=== PATIENT | male | born 1975 | race Caucasian/White ===

== ENCOUNTER 2018-01-03 13:25 | Emergency (ER) | payer BC ==
[2018-01-03] MEDS ORDERED: Sodium Chloride 0.9% 1,000 ML IV ONE (13:47)
[2018-01-03] MEDS ORDERED: Ondansetron 4 MG/2 ML SDV IVPUSH ONE (13:47)
[2018-01-03] MEDS ORDERED: Ketorolac 30 MG/ML SDV IVPUSH ONE (13:47)
--- NOTE | 2018-01-03 13:47 | EDM.PDOC ---
ED HPI GENERAL MEDICAL PROBLEM - General Chief Complaint: Abdominal Pain Stated Complaint: ABDOMINAL PAIN Time Seen by Provider: 01/03/18 13:46 Source of Information: Reports: Patient - History of Present Illness INITIAL COMMENTS - FREE TEXT/NARRATIVE: HISTORY AND PHYSICAL: History of present illness: [Patient presents with left lower quadrant pain nonradiating worsened by movement or walking better at rest here currently rates 5 out of 10, and states it is tolerable. Patient has had colonoscopy in the last 2 years and was found to have diverticulosis at that time no fever nausea vomiting chills sweats no chest pain shortness of breath headache dizziness or palpitation no bowel or urine symptoms ] Review of systems: As per history of present illness and below otherwise all systems reviewed and negative. Past medical history: As per history of present illness and as reviewed below otherwise noncontributory. Surgical history: As per history of present illness and as reviewed below otherwise noncontributory. Social history: No reported history of drug or alcohol abuse. Family history: As per history of present illness and as reviewed below otherwise noncontributory. Physical exam: HEENT: Atraumatic, normocephalic, pupils reactive, negative for conjunctival pallor or scleral icterus, mucous membranes moist, throat clear, neck supple, nontender, trachea midline. Lungs: Clear to auscultation, breath sounds equal bilaterally, chest nontender. Heart: S1S2, regular, negative for clicks, rubs, or JVD. Abdomen: Soft, nondistended, tender in the left lower quadrant on deep palpation some guarding no rebound, no right-sided tenderness. Negative for masses or hepatosplenomegaly. Negative for costovertebral tenderness. Pelvis: Stable nontender. Genitourinary: Deferred. Rectal: Deferred. Extremities: Atraumatic, negative for cords or calf pain. Neurovascular unremarkable. Neuro: Awake, alert, oriented. Cranial nerves II through XII unremarkable. Cerebellum unremarkable. Motor and sensory unremarkable throughout. Exam nonfocal. Diagnostics: [CBC CMP UA lipase troponin EKG ]CT abdomen pelvis with contrast and without Therapeutics: [Normal saline 1 L bolus Zofran 8 mg IV Toradol 30 mg IV ] Cipro 500 by mouth now Patient refused the Zofran and Toradol Patient is offered admission and he refused at this time stating he would rather be treated at home Cipro 500 by mouth twice a day #20 no refill Flagyl 500 by mouth 3 times a day #30 no refill Zofran Moriah Return if symptoms persist or worsen Impression: Diverticulitis [ abdominal pain ] Definitive disposition and diagnosis as appropriate pending reevaluation and review of above. Left Lower Abdomen Pain Score (Numeric/FACES): 10 - Related Data Allergies Allergy/AdvReac Type Severity Reaction Status Date / Time No Known Allergies Allergy Verified 01/03/18 13:51 Home Meds: Home Meds Aspirin [Ecotrin] 81 mg PO DAILY 01/03/18 [History] Desvenlafaxine Succinate [Pristiq ER] 50 mg PO DAILY 01/03/18 [History] Docusate Sodium/Sennosides [Senokot-S] 2 tab PO ASDIRECTED 01/03/18 [History] Insulin Detemir [Levemir Flextouch] 30 unit SQ BEDTIME 01/03/18 [History] Ozempic 0.25 mg SUBCUT WEEKLY 01/03/18 [History] Psyllium Husk [Daily Fiber] 2 tab PO BID 01/03/18 [History] Ramipril [Altace] 2 tab PO BID 01/03/18 [History] metFORMIN HCl [Metformin HCl] 500 mg PO BID 01/03/18 [History] Past Medical History Other HEENT History: wears glasses Cardiovascular History: Reports: High Cholesterol, Other (See Below) Respiratory History: Reports: None Gastrointestinal History: Reports: Chronic Constipation, Hemorrhoids Genitourinary History: Reports: None Musculoskeletal History: Reports: Other (See Below) Other Musculoskeletal History: ankles Neurological History: Reports: None Psychiatric History: Reports: Anxiety, Depression Other Psychiatric History: takes a "mood stabilizer" Endocrine/Metabolic History: Reports: Diabetes, Type II, Obesity/BMI 30+ Hematologic History: Reports: None Immunologic History: Reports: None Oncologic (Cancer) History: Reports: Other (See Below) Other Oncologic History: 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), 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 ED EXAM, GENERAL - Physical Exam Exam: See Below Course - Vital Signs Last Recorded V/S: Last Vital Signs Temp 97.7 F 01/03/18 15:46 Pulse 89 01/03/18 15:46 Resp 18 01/03/18 15:46 BP 142/76 H 01/03/18 15:46 Pulse Ox 97 01/03/18 15:46 - Orders/Labs/Meds Orders: Active Orders 24 hr Category Date Time Status EKG 12 Lead [EKG Documentation Completion] [RC] STAT Care 01/03/18 13:46 Active Abdomen Pelvis w wo Cont [CT] Stat Exams 01/03/18 14:24 Taken UA W/MICROSCOPIC [URIN] Stat Lab 01/03/18 13:46 Ordered Labs: Laboratory Tests 01/03/18 01/03/18 Range/Units 14:00 14:00 WBC 14.98 H (4.0-11.0) K/uL RBC 5.21 (4.50-5.90) M/uL Hgb 14.4 (13.0-17.0) g/dL Hct 42.9 (38.0-50.0) % MCV 82.3 (80.0-98.0) fL MCH 27.6 (27.0-32.0) pg MCHC 33.6 (31.0-37.0) g/dL RDW Std Deviation 41.9 (28.0-62.0) fl RDW Coeff of Linda 14 (11.0-15.0) % Plt Count 216 (150-400) K/uL MPV 9.10 (7.40-12.00) fL Neut % (Auto) 77.4 (48.0-80.0) % Lymph % (Auto) 12.0 L (16.0-40.0) % Finney % (Auto) 9.4 (0.0-15.0) % Eos % (Auto) 0.9 (0.0-7.0) % Baso % (Auto) 0.3 (0.0-1.5) % Neut # (Auto) 11.6 H (1.4-5.7) K/uL Lymph # (Auto) 1.8 (0.6-2.4) K/uL Finney # (Auto) 1.4 H (0.0-0.8) K/uL Eos # (Auto) 0.1 (0.0-0.7) K/uL Baso # (Auto) 0.1 (0.0-0.1) K/uL Nucleated RBC % 0.0 /100WBC Nucleated RBCs # 0 K/uL Sodium 136 (136-148) mmol/L Potassium 3.8 (3.5-5.1) mmol/L Chloride 102 (98-107) mmol/L Carbon Dioxide 24.3 (21.0-32.0) mmol/L BUN 8 (7.0-18.0) mg/dL Creatinine 1.0 (0.8-1.3) mg/dL Est Cr Clr Drug Dosing 109.60 mL/min Estimated GFR (MDRD) > 60.0 ml/min Glucose 172 H (74-106) mg/dL Calcium 9.3 (8.5-10.1) mg/dL Total Bilirubin 0.9 (0.2-1.0) mg/dL AST 17 (15-37) IU/L ALT 39 (14-63) IU/L Alkaline Phosphatase 90 (46-116) U/L Troponin I < 0.050 (0.000-0.056) ng/mL Total Protein 8.0 (6.4-8.2) g/dL Albumin 3.8 (3.4-5.0) g/dL Globulin 4.2 H (2.0-3.5) g/dL Albumin/Globulin Ratio 0.9 L (1.3-2.8) Lipase 147 (73-393) U/L Meds: Medications Discontinued Medications Generic Name Dose Route Start Last Admin Trade Name Freq PRN Reason Stop Dose Admin Ciprofloxacin 500 mg 01/03/18 16:00 01/03/18 16:08 Ciprofloxacin Hcl PO 01/03/18 16:01 500 mg ONETIME ONE Administration Sodium Chloride 1,000 mls @ 999 mls/hr 01/03/18 13:47 01/03/18 14:51 Normal Saline IV 01/03/18 14:47 999 mls/hr STAT ONE Administration Iopamidol 100 ml 01/03/18 15:24 01/03/18 15:28 Isovue Multipack-370 (76%) IVPUSH 01/03/18 15:25 100 ml ONETIME ONE Administration Ketorolac Tromethamine 30 mg 01/03/18 13:47 01/03/18 14:49 Toradol IVPUSH 01/03/18 13:48 30 mg ONETIME ONE Administration Metronidazole 500 mg 01/03/18 16:00 01/03/18 16:07 Metronidazole PO 01/03/18 16:01 Not Given ONETIME ONE Ondansetron HCl 8 mg 01/03/18 13:47 01/03/18 15:56 Zofran IVPUSH 01/03/18 13:48 Not Given ONETIME ONE Departure - Departure Time of Disposition: 16:16 Disposition: Home, Self-Care 01 Condition: Fair Clinical Impression: Diverticulitis - Discharge Information Referrals: Corwin Woo MD [Primary Care Provider] - Forms: ED Department Discharge Additional Instructions: Medication as prescribed Return if symptoms persist or worsen or new concerning symptoms develop such as intractable pain, intractable vomiting, or fever despite treatment Follow-up with primary care in 2 weeks sooner as needed [facility] [address] [place] [address] The following information is given to patients seen in the emergency department who are being discharged to home. This information is to outline your options for follow-up care. We provide all patients seen in our emergency department with a follow-up referral. The need for follow-up, as well as the timing and circumstances, are variable depending upon the specifics of your emergency department visit. If you don't have a primary care physician on staff, we will provide you with a referral. We always advise you to contact your personal physician following an emergency department visit to inform them of the circumstance of the visit and for follow-up with them and/or the need for any referrals to a consulting specialist. The emergency department will also refer you to a specialist when appropriate. This referral assures that you have the opportunity for follow-up care with a specialist. All of these measure are taken in an effort to provide you with optimal care, which includes your follow-up. Under all circumstances we always encourage you to contact your private physician who remains a resource for coordinating your care. When calling for follow-up care, please make the office aware that this follow-up is from your recent emergency room visit. If for any reason you are refused follow-up, please contact the [facility] emergency department at and asked to speak to the emergency department charge nurse. - My Orders Last 24 Hours: My Active Orders 01/03/18 13:46 EKG 12 Lead [EKG Documentation Completion] [RC] STAT UA W/MICROSCOPIC [URIN] Stat 01/03/18 14:24 Abdomen Pelvis w wo Cont [CT] Stat - Assessment/Plan Last 24 Hours: My Active Orders 01/03/18 13:46 EKG 12 Lead [EKG Documentation Completion] [RC] STAT UA W/MICROSCOPIC [URIN] Stat 01/03/18 14:24 Abdomen Pelvis w wo Cont [CT] Stat
[2018-01-03 15:01] LABS: CHLORIDE,CL 102 mmol/L (98-107); SODIUM,NA 136 mmol/L (136-148)
[2018-01-03] MEDS ORDERED: Iopamidol 755 MG/ML 200 ML Multipack Bottle IVPUSH ONE (15:24)
[2018-01-03] MEDS ORDERED: Ciprofloxacin 500 MG Tab PO ONE (16:00)
[2018-01-03] MEDS ORDERED: metroNIDAZOLE 250 MG Tab PO ONE (16:00)
--- NOTE | 2018-01-04 15:56 | CT ---
EXAM DATE: 01/03/18 PATIENT'S AGE: 42 Patient: NAVEEN CHAVEZ Facility: [place], [place] Site . Site : 1975 Study: CT Abdomen/Pelvis W/ and W/O Cont [id number]/[id number] 3:32:38 PM Ordering Physician: Dilan Rick Final Report: INDICATION: Left lower quadrant abdominal pain; elevated white count. COMPARISON: CT chest,abdomen and pelvis February 18, 2016. TECHNIQUE: CT abdomen and pelvis without intravenous contrast; CT abdomen and pelvis with intravenous contrast; no oral contrast; coronal and sagittal reformats. FINDINGS: No abnormal intra pulmonary nodular densities through the lung bases. No evidence of pleural effusion. Normal size cardiac silhouette without any evidence of pericardial effusion. Mild diffuse fatty infiltration of the liver. No focal hepatic or splenic pathology. No pancreatic pathology. Gallbladder is unremarkable. No adrenal pathology. No kidney stones or obstructive uropathy. No retroperitoneal lymphadenopathy. No evidence of abdominal or pelvic ascites. Normal appendix. Acute diverticulitis sigmoid colon without any drainable intra- abdominal abscess. No evidence of pneumoperitoneum. No evidence of intestinal obstruction. Splenic vein, superior mesenteric vein and the portal vein are unremarkable. Status post left inguinal hernia repair. IMPRESSION: 1. Acute diverticulitis sigmoid colon without any evidence of abscess or pneumoperitoneum. 2. No evidence of intestinal obstruction. 3. Status post left inguinal hernia repair. Please note that all CT scans at this facility use dose modulation, iterative reconstruction, and/or weight-based dosing when appropriate to reduce radiation dose to as low as reasonably achievable. Dictated by Ashley Aviles MD @ Jan 03 2018 3:44PM (Electronic Signature) Report Signed by Proxy. [facility]
== END 2018-01-03 16:34 | disposition home or self-care (01) ==
LOC: MW.ED 13:25
DX: K57.92 Diverticulitis of intestine, part unspecified, without perforation or abscess without bleeding (principal); E78.00 Pure hypercholesterolemia, unspecified; E11.9 Type 2 diabetes mellitus without complications; Z79.82 Long term (current) use of aspirin; Z79.4 Long term (current) use of insulin; Z79.899 Other long term (current) drug therapy
CPT/HCPCS: 36415; 74178; 80053; 83690; 84484; 85025; 93005; 96361; 96374; 99284; A9270; J1885; J7040; Q9967

== ENCOUNTER 2020-03-20 09:19 | Day surgery (SDC) | payer BC ==
[~2020-03-20 09:19] MED LIST: Acetaminophen 1,000 MG in Premix Bag 1 BAG IV PRN; Lactated Ringers 1,000 ML IV SCH; Sodium Chloride 0.9% 10 ML SDV IV PRN; Sodium Chloride 0.9% 10 ML Syringe FLUSH PRN; Sodium Chloride 0.9% 2.5 ML Syringe FLUSH PRN; ceFAZolin 2 GM in Premix Bag 1 BAG IV ONE; fentaNYL 100 MCG/2 ML SDV IVPUSH PRN
[2020-03-20] MEDS ORDERED: Midazolam 1 MG/ML 2 ML SDV IVPUSH ONE (10:40)
--- NOTE | 2020-03-20 11:41 | PCM.PREANE ---
Preanesthetic Assessment - Anesthesia/Transfusion/Family Hx Anesthesia History: Prior Anesthesia Reaction Other Type of Anesthesia Reaction Comment: hx of hypertension when waking up Family History of Anesthesia Reaction: No Transfusion History: No Prior Transfusion(s) Intubation History: Unknown - Review of Systems General: No Symptoms Pulmonary: No Symptoms Cardiovascular: No Symptoms Gastrointestinal: No Symptoms Neurological: No Symptoms Other: Reports: None - Physical Assessment Vital Signs: Last Vital Signs Temp 35.8 C L 03/20/20 09:38 Pulse 89 03/20/20 09:38 Resp 16 03/20/20 09:38 BP 136/101 H 03/20/20 10:57 Pulse Ox 96 03/20/20 09:38 Height: 6 ft 3 in Weight: 128.367 kg ASA Class: 3 Mental Status: Alert & Oriented x3 Airway Class: Mallampati = 2 Dentition: Reports: Normal Dentition Thyro-Mental Finger Breadths: 3 Mouth Opening Finger Breadths: 3 ROM/Head Extension: Full Lungs: Clear to Auscultation, Normal Respiratory Effort Cardiovascular: Regular Rate, Regular Rhythm - Allergies Allergies/Adverse Reactions: Allergies Allergy/AdvReac Type Severity Reaction Status Date / Time No Known Allergies Allergy Verified 03/19/20 12:00 - Blood Blood Available: No - Anesthesia Plan Pre-Op Medication Ordered: None - Acknowledgements Anesthesia Type Planned: General Anesthesia Pt an Appropriate Candidate for the Planned Anesthesia: Yes Alternatives and Risks of Anesthesia Discussed w Pt/Guardian: Yes Pt/Guardian Understands and Agrees with Anesthesia Plan: Yes PreAnesthesia Questionnaire HEENT History: Reports: Hard of Hearing, Other (See Below) Other HEENT History: wears glasses Cardiovascular History: Reports: High Cholesterol, Hypertension, Other (See Below) (cleared by cardiologyst for surgery after cardiac ECHO was doubtfull) Respiratory History: Reports: None Gastrointestinal History: Reports: Diverticulosis, Other (See Below) Other Gastrointestinal History: occasional heartburn- takes Tums Genitourinary History: Reports: None Musculoskeletal History: Reports: Fracture Other Musculoskeletal History: hx of fx ankle as a child Neurological History: Reports: None Psychiatric History: Reports: Anxiety, Depression Other Psychiatric History: takes a "mood stabilizer" Endocrine/Metabolic History: Reports: IDDM, Obesity/BMI 30+ (BMI 35.4) Hematologic History: Immunologic History: Reports: None Oncologic (Cancer) History: Reports: Other (See Below) Other Oncologic History: has Micosis Fungoides ( cutaneous non-Hodgkins lymphoma) Dermatologic History: Reports: Other (See Below) Other Dermatologic History: hx of Micosis Fungoides and "iron stains" on skin that looks like eczema - Infectious Disease History Infectious Disease History: Reports: Chicken Pox - Past Surgical History Head Surgeries/Procedures: Reports: None HEENT Surgical History: Reports: Tonsillectomy GI Surgical History: Reports: Colonoscopy, Hernia, Abdominal, Hernia, Inguinal Other GI Surgeries/Procedures: umbilical hernia repair Oncologic Surgical History: Reports: Bone Marrow Aspiration - SUBSTANCE USE Smoking Status *Q: Never Smoker Recreational Drug Use History: No - HOME MEDS Home Medications: Home Meds Aspirin [Ecotrin] 81 mg PO DAILY 01/03/18 [History] Desvenlafaxine Succinate [Pristiq ER] 50 mg PO DAILY 01/03/18 [History] Insulin Detemir [Levemir Flextouch] 38 unit SQ BEDTIME 01/03/18 [History] Ozempic 1 mg SUBCUT WEEKLY 01/03/18 [History] Psyllium Husk [Daily Fiber] 2 tab PO BID 01/03/18 [History] metFORMIN HCl [Metformin HCl] 500 mg PO BID 01/03/18 [History] ramipriL [Altace] 5 mg PO BID 01/03/18 [History] Empagliflozin [Jardiance] 25 mg PO DAILY 03/19/20 [History] Sennosides/Docusate Sodium [Stool Softener-Stim Lax Softgl] 2 cap PO QID 03/19/20 [History] Sildenafil Citrate 50 mg PO ASDIRECTED PRN 03/19/20 [History] - CURRENT (IN HOUSE) MEDS Current Meds: Current Medications Fentanyl (Sublimaze) 50 mcg IVPUSH Q5M PRN PRN Reason: Pain Lactated Ringer's (Ringers, Lactated) 1,000 mls @ 100 mls/hr IV ASDIRECTED AMELIE Last Admin: 03/20/20 10:25 Dose: 100 mls/hr Documented by: Acetaminophen 1,000 mg/ Premix 100 mls @ 400 mls/hr IV ONETIME PRN PRN Reason: Pain Sodium Chloride (Saline Flush) 2.5 ml FLUSH ASDIRECTED PRN PRN Reason: Keep Vein Open Sodium Chloride (Normal Saline) 10 ml IV ASDIRECTED PRN PRN Reason: IV Use Sodium Chloride (Saline Flush) 10 ml FLUSH ASDIRECTED PRN PRN Reason: Keep Vein Open Discontinued Medications Cefazolin Sodium/Dextrose 2 gm (/ Premix) 50 mls @ 100 mls/hr IV ONCALL ONE Stop: 03/19/20 16:05 Midazolam HCl (Versed 1 Mg/Ml) 2 mg IVPUSH ONETIME ONE Stop: 03/20/20 10:41 Last Admin: 03/20/20 10:49 Dose: 2 mg Documented by:
== END 2020-03-20 12:12 | disposition home or self-care (01) ==
LOC: MW.SDS 09:19
PROVIDERS: ATTEND Urology
DX: D49.4 Neoplasm of unspecified behavior of bladder (principal); Z53.8 Procedure and treatment not carried out for other reasons; I10 Essential (primary) hypertension; E78.00 Pure hypercholesterolemia, unspecified; F41.9 Anxiety disorder, unspecified; F32.9 Major depressive disorder, single episode, unspecified; E11.9 Type 2 diabetes mellitus without complications; E66.9 Obesity, unspecified; Z68.35 Body mass index [BMI] 35.0-35.9, adult; Z79.82 Long term (current) use of aspirin; Z79.4 Long term (current) use of insulin; Z79.899 Other long term (current) drug therapy
CPT/HCPCS: J2250; J7120

== ENCOUNTER 2020-04-03 06:32 | Day surgery (SDC) | payer BC ==
[2020-04-03] MEDS ORDERED: fentaNYL 250 MCG/5 ML SDV ONE (08:15)
[2020-04-03] MEDS ORDERED: Midazolam 1 MG/ML 2 ML SDV ONE (08:16)
[2020-04-03] MEDS ORDERED: Propofol 200 MG/20 ML SDV ONE ×2 (08:17→09:13)
[2020-04-03] MEDS ORDERED: Ondansetron 4 MG/2 ML SDV ONE (08:18)
[2020-04-03] MEDS ORDERED: ceFAZolin/Dextrose,Iso-Osmotic 2 GM/50 ML Duplex Bag IV ONE (08:30)
--- NOTE | 2020-04-03 08:36 | PCM.PREANE ---
Preanesthetic Assessment - Anesthesia/Transfusion/Family Hx Anesthesia History: Prior Anesthesia Without Reaction Other Type of Anesthesia Reaction Comment: hx of hypertension when waking up Family History of Anesthesia Reaction: No Transfusion History: No Prior Transfusion(s) Intubation History: Unknown - Review of Systems General: No Symptoms Pulmonary: No Symptoms Cardiovascular: No Symptoms Gastrointestinal: No Symptoms Neurological: No Symptoms Other: Reports: None - Physical Assessment NPO Status Date: 04/02/20 Height: 6 ft 1 in Weight: 126.099 kg ASA Class: 3 Mental Status: Alert & Oriented x3 Airway Class: Mallampati = 2 Dentition: Reports: Normal Dentition ROM/Head Extension: Full Lungs: Clear to Auscultation, Normal Respiratory Effort Cardiovascular: Regular Rate, Regular Rhythm - Lab Values: Laboratory Last Values SARS Virus RNA (PCR) NEGATIVE (NEGATIVE) 04/03/20 06:47 - Allergies Allergies/Adverse Reactions: Allergies Allergy/AdvReac Type Severity Reaction Status Date / Time No Known Allergies Allergy Verified 03/29/20 09:56 - Blood Blood Available: No - Anesthesia Plan Pre-Op Medication Ordered: None - Acknowledgements Anesthesia Type Planned: General Anesthesia Pt an Appropriate Candidate for the Planned Anesthesia: Yes Alternatives and Risks of Anesthesia Discussed w Pt/Guardian: Yes Pt/Guardian Understands and Agrees with Anesthesia Plan: Yes Additional Comments: PMH: dm2 on insulin, cad "non obstructive", htn- poorly controlled- diastolic BPs on last 3 dr visits=99,92, and 97 PLAN: ga/lma PreAnesthesia Questionnaire HEENT History: Reports: Hard of Hearing, Other (See Below) Other HEENT History: wears glasses Cardiovascular History: Reports: High Cholesterol, Hypertension, Other (See Below) Respiratory History: Reports: None Gastrointestinal History: Reports: Diverticulosis, Other (See Below) Other Gastrointestinal History: occasional heartburn- takes Tums Genitourinary History: Reports: None Musculoskeletal History: Reports: Fracture Other Musculoskeletal History: hx of fx ankle as a child Neurological History: Reports: None Psychiatric History: Reports: Anxiety, Depression Other Psychiatric History: takes a "mood stabilizer" Endocrine/Metabolic History: Reports: IDDM, Obesity/BMI 30+ Hematologic History: Immunologic History: Reports: None Oncologic (Cancer) History: Reports: Other (See Below) Other Oncologic History: 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) Dermatologic History: Reports: Other (See Below) Other Dermatologic History: hx of Micosis Fungoides and "iron stains" on skin that looks like eczema - Infectious Disease History Infectious Disease History: Reports: Chicken Pox - Past Surgical History Head Surgeries/Procedures: Reports: None HEENT Surgical History: Reports: Tonsillectomy Cardiovascular Surgical History: Reports: None Respiratory Surgical History: Reports: None GI Surgical History: Reports: Colonoscopy, Hernia, Abdominal, Hernia, Inguinal Other GI Surgeries/Procedures: umbilical hernia repair Male Surgical History: Reports: None Endocrine Surgical History: Reports: None Neurological Surgical History: Reports: None Musculoskeletal Surgical History: Reports: None Oncologic Surgical History: Reports: Bone Marrow Aspiration Dermatological Surgical History: Reports: None - SUBSTANCE USE Smoking Status *Q: Never Smoker Recreational Drug Use History: No - HOME MEDS Home Medications: Home Meds Aspirin [Ecotrin] 81 mg PO DAILY 01/03/18 [History] Desvenlafaxine Succinate [Pristiq ER] 50 mg PO DAILY 01/03/18 [History] Insulin Detemir [Levemir Flextouch] 38 unit SQ BEDTIME 01/03/18 [History] Ozempic 1 mg SUBCUT WEEKLY 01/03/18 [History] Psyllium Husk [Daily Fiber] 2 tab PO BID 01/03/18 [History] metFORMIN HCl [Metformin HCl] 500 mg PO BID 01/03/18 [History] ramipriL [Altace] 5 mg PO BID 01/03/18 [History] Empagliflozin [Jardiance] 25 mg PO DAILY 03/19/20 [History] Sennosides/Docusate Sodium [Stool Softener-Stim Lax Softgl] 2 cap PO QID 03/19/20 [History] Sildenafil Citrate 50 mg PO ASDIRECTED PRN 03/19/20 [History] - CURRENT (IN HOUSE) MEDS Current Meds: Current Medications Discontinued Medications Cefazolin Sodium/Dextrose (Ancef) Confirm Administered Dose 2 gm IV .STK-MED ONE Stop: 04/03/20 08:31 Fentanyl (Sublimaze) Confirm Administered Dose 250 mcg .ROUTE .STK-MED ONE Stop: 04/03/20 08:16 Cefazolin Sodium/Dextrose (Ancef) Confirm Administered Dose 50 mls @ as directed .ROUTE .STK-MED ONE Stop: 04/03/20 08:31 Lidocaine HCl (Xylocaine-Mpf 1%) Confirm Administered Dose 5 ml .ROUTE .STK-MED ONE Stop: 04/03/20 08:18 Midazolam HCl (Versed 1 Mg/Ml) Confirm Administered Dose 2 mg .ROUTE .STK-MED ONE Stop: 04/03/20 08:17 Ondansetron HCl (Zofran) Confirm Administered Dose 4 mg .ROUTE .STK-MED ONE Stop: 04/03/20 08:19 Propofol (Diprivan 20 Ml) Confirm Administered Dose 200 mg .ROUTE .STK-MED ONE Stop: 04/03/20 08:18
--- NOTE | 2020-04-03 11:49 | PCM48HPAN ---
Post Anesthesia Note - EVALUATION WITHIN 48HRS OF ANESTHETIC Vital Signs in Normal Range: Yes Patient Participated in Evaluation: Yes Respiratory Function Stable: Yes Airway Patent: Yes Cardiovascular Function Stable: Yes Hydration Status Stable: Yes Pain Control Satisfactory: Yes Nausea and Vomiting Control Satisfactory: Yes Mental Status Recovered: Yes Vital Signs: Last Vital Signs Temp 96.8 F L 04/03/20 08:30 Pulse 79 04/03/20 10:43 Resp 16 04/03/20 10:43 BP 143/88 H 04/03/20 10:43 Pulse Ox 95 04/03/20 10:43
--- NOTE | 2020-04-03 11:49 | PCM.POSTAN ---
POST ANESTHESIA ASSESSMENT - MENTAL STATUS Mental Status: Alert, Oriented - VITAL SIGNS Vital Signs: Last Vital Signs Temp 96.8 F L 04/03/20 08:30 Pulse 79 04/03/20 10:43 Resp 16 04/03/20 10:43 BP 143/88 H 04/03/20 10:43 Pulse Ox 95 04/03/20 10:43 - RESPIRATORY Respiratory Status: Respiratory Rate WNL, Airway Patent, O2 Saturation Stable - CARDIOVASCULAR CV Status: Pulse Rate WNL, Blood Pressure Stable - GASTROINTESTINAL GI Status: No Symptoms - POST OP HYDRATION Hydration Status: Adequate & Stable
--- NOTE | 2020-04-03 14:05 | OR ---
SURGEON: Carlos Sanders M.D. 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 OPERATION: Bladder tumor resection. DESCRIPTION OF PROCEDURE: The patient was given general anesthesia. He was in dorsal lithotomy position, prepped and draped in sterile drapes. The 26-Indian cystoscope was introduced into the bladder. The cold cup biopsy forceps was used to remove the entire tumors. The bases of the tumors were then fulgurated using the Bugbee. Estimated blood loss was minimal. The patient tolerated the procedure well. The bladder was emptied, and the patient was moved to recovery room in good condition. PLAN: I will review the report, contact the patient and see if we can do either BCG or mitomycin-C postop and then we will do another cystoscopy in 3 to 4 months. ARIAN / ANDERS /[id number]
== END 2020-04-03 11:48 | disposition home or self-care (01) ==
LOC: MW.SDS 06:32
PROVIDERS: ATTEND Urology
DX: C67.1 Malignant neoplasm of dome of bladder (principal); C84.09 Mycosis fungoides, extranodal and solid organ sites; I25.10 Atherosclerotic heart disease of native coronary artery without angina pectoris; E78.5 Hyperlipidemia, unspecified; E66.9 Obesity, unspecified; E11.65 Type 2 diabetes mellitus with hyperglycemia; Z11.59 Encounter for screening for other viral diseases; F41.8 Other specified anxiety disorders; I10 Essential (primary) hypertension; E78.00 Pure hypercholesterolemia, unspecified; Z79.84 Long term (current) use of oral hypoglycemic drugs; Z79.82 Long term (current) use of aspirin; Z79.899 Other long term (current) drug therapy; Z87.891 Personal history of nicotine dependence; Z68.35 Body mass index [BMI] 35.0-35.9, adult
CPT/HCPCS: 52235; 87635; J0690; J2001; J2250; J2405; J2704; J3010; 00912; 88307; U0002

== ENCOUNTER 2024-10-31 10:38 | Emergency (ER) | payer OTHER ==
[2024-10-31] MEDS ORDERED: Sodium Chloride 0.9% 10 ML Syringe FLUSH PRN (10:50)
[2024-10-31] MEDS ORDERED: Sodium Chloride 0.9% 2.5 ML Syringe FLUSH PRN (10:50)
[2024-10-31] MEDS: Pantoprazole 80 MG in Sodium Chloride 0.9% 10 ML IVPUSH ONE (11:19)
[2024-10-31 11:27] LABS: BASOPHILS ABSOLUTE AUTO 0.12 K/uL (0.00-0.20); EOSINOPHILS ABSOLUTE AUTO 0.13 K/uL (0.00-0.45); EOSINOPHILS PERCENT AUTO 1.1 % (0.0-6.0); HEMATOCRIT 41.7 % (42.0-52.0); HEMOGLOBIN 13.8 g/dL (14.0-18.0); IMMATURE GRAN ABSOLUTE AUTO 0.04 K/uL (0.00-0.05); IMMATURE GRAN PERCENT AUTO 0.3 % (0.0-0.4); LYMPHOCYTES ABSOLUTE AUTO 2.66 K/uL (1.00-4.80); LYMPHOCYTES PERCENT AUTO 22.2 % (24.0-44.0); MEAN CORPUSCULAR HEMOGLOBIN 27.8 pg (28.0-32.0); MEAN CORPUSCULAR HGB CONC 33.1 g/dL (32.0-36.0); MEAN CORPUSCULAR VOLUME 84.1 fL (83.0-99.0); MEAN PLATELET VOLUME 8.7 fL (9.4-12.4); MONOCYTES ABSOLUTE AUTO 0.82 K/uL (0.00-0.80); MONOCYTES PERCENT AUTO 6.9 % (0.0-8.0); NEUTROPHILS ABSOLUTE AUTO 8.19 K/uL (1.80-7.70); NEUTROPHILS PERCENT AUTO 68.5 % (41.0-71.0); PLATELET COUNT,PLT 257 K/uL (150-400); RED BLOOD CELL COUNT 4.96 M/uL (4.52-5.90); WHITE BLOOD CELL COUNT,WBC 11.96 K/uL (3.9-11.3)
[2024-10-31 11:46] LABS: INR 1.05 (0.86-1.11)
[2024-10-31 11:55] LABS: A/G RATIO 1.2 (0.9-1.6); ALANINE AMINOTRANSFERASE,ALT 36 IU/L (14-63); ALBUMIN 3.7 g/dL (3.4-5.0); ALKALINE PHOSPHATASE 86 U/L (46-116); ASPARTATE AMNIOTRANSFERASE,AST 17 IU/L (15-37); BILIRUBIN TOTAL 0.4 mg/dL (0.2-1.0); BLOOD UREA NITROGEN,BUN 15 mg/dL (7.0-18.0); CALCIUM 8.8 mg/dL (8.5-10.1); CARBON DIOXIDE,CO2 22.1 mmol/L (21.0-32.0); CHLORIDE,CL 106 mmol/L (98-107); CREATININE 1.2 mg/dL (0.8-1.3); EST CRCL DRUG DOSING (CG) 84.67 mL/min; ESTIMATED GFR 73 mL/min (>60); ETHANOL BLOOD MEDICAL 7 mg/dL; GLUCOSE RANDOM 158 mg/dL (74-106); MAGNESIUM 2.1 mg/dL (1.8-2.4); POTASSIUM,K 4.9 mmol/L (3.5-5.1); PROTEIN TOTAL,TP 6.7 g/dL (6.4-8.2); SODIUM,NA 141 mmol/L (136-148)
[2024-10-31] MEDS: Sodium Chloride 0.9% 1,000 ML IV STA (11:55)
[2024-10-31 13:39] LABS: BASOPHILS ABSOLUTE AUTO 0.11 K/uL (0.00-0.20); BASOPHILS PERCENT AUTO 0.6 % (0.0-1.0); EOSINOPHILS ABSOLUTE AUTO 0.06 K/uL (0.00-0.45); EOSINOPHILS PERCENT AUTO 0.3 % (0.0-6.0); HEMATOCRIT 38.6 % (42.0-52.0); HEMOGLOBIN 12.8 g/dL (14.0-18.0); IMMATURE GRAN ABSOLUTE AUTO 0.09 K/uL (0.00-0.05); IMMATURE GRAN PERCENT AUTO 0.5 % (0.0-0.4); LYMPHOCYTES ABSOLUTE AUTO 1.58 K/uL (1.00-4.80); MEAN CORPUSCULAR HEMOGLOBIN 27.7 pg (28.0-32.0); MEAN CORPUSCULAR HGB CONC 33.2 g/dL (32.0-36.0); MEAN CORPUSCULAR VOLUME 83.5 fL (83.0-99.0); MEAN PLATELET VOLUME 8.6 fL (9.4-12.4); NEUTROPHILS ABSOLUTE AUTO 14.96 K/uL (1.80-7.70); NEUTROPHILS PERCENT AUTO 85.6 % (41.0-71.0); PLATELET COUNT,PLT 235 K/uL (150-400); RED BLOOD CELL COUNT 4.62 M/uL (4.52-5.90)
[2024-10-31 16:07] LABS: BASOPHILS ABSOLUTE AUTO 0.08 K/uL (0.00-0.20); BASOPHILS PERCENT AUTO 0.6 % (0.0-1.0); EOSINOPHILS ABSOLUTE AUTO 0.03 K/uL (0.00-0.45); EOSINOPHILS PERCENT AUTO 0.2 % (0.0-6.0); HEMATOCRIT 39.8 % (42.0-52.0); IMMATURE GRAN ABSOLUTE AUTO 0.07 K/uL (0.00-0.05); IMMATURE GRAN PERCENT AUTO 0.5 % (0.0-0.4); LYMPHOCYTES PERCENT AUTO 10.7 % (24.0-44.0); MEAN CORPUSCULAR HEMOGLOBIN 27.3 pg (28.0-32.0); MEAN CORPUSCULAR HGB CONC 32.7 g/dL (32.0-36.0); MEAN CORPUSCULAR VOLUME 83.6 fL (83.0-99.0); MEAN PLATELET VOLUME 8.9 fL (9.4-12.4); MONOCYTES PERCENT AUTO 4.3 % (0.0-8.0); NEUTROPHILS ABSOLUTE AUTO 11.69 K/uL (1.80-7.70); NEUTROPHILS PERCENT AUTO 83.7 % (41.0-71.0); PLATELET COUNT,PLT 252 K/uL (150-400); RED BLOOD CELL COUNT 4.76 M/uL (4.52-5.90); WHITE BLOOD CELL COUNT,WBC 13.97 K/uL (3.9-11.3)
== END 2024-10-31 16:43 | disposition home or self-care (01) ==
LOC: MW.ED 10:38
DX: K62.5 Hemorrhage of anus and rectum (principal); I10 Essential (primary) hypertension; E78.00 Pure hypercholesterolemia, unspecified; Z79.899 Other long term (current) drug therapy; Z79.4 Long term (current) use of insulin; Z79.85 Long-term (current) use of injectable non-insulin antidiabetic drugs; Z79.84 Long term (current) use of oral hypoglycemic drugs
CPT/HCPCS: 36415; 80053; 80307; 83735; 84484; 85025; 85610; 86850; 86900; 86901; 93005; 96361; 96374; 99284; J2470; J7030; 93010

== ENCOUNTER 2024-12-22 02:56 | Inpatient (IN) | payer OTHER ==
[2024-12-22 04:35] LABS: BASOPHILS ABSOLUTE AUTO 0.08 K/uL (0.00-0.20); BASOPHILS PERCENT AUTO 0.9 % (0.0-1.0); EOSINOPHILS ABSOLUTE AUTO 0.21 K/uL (0.00-0.45); EOSINOPHILS PERCENT AUTO 2.4 % (0.0-6.0); HEMATOCRIT 43.6 % (42.0-52.0); HEMOGLOBIN 14.2 g/dL (14.0-18.0); IMMATURE GRAN ABSOLUTE AUTO 0.03 K/uL (0.00-0.05); IMMATURE GRAN PERCENT AUTO 0.3 % (0.0-0.4); LYMPHOCYTES ABSOLUTE AUTO 1.58 K/uL (1.00-4.80); LYMPHOCYTES PERCENT AUTO 18.2 % (24.0-44.0); MEAN CORPUSCULAR HEMOGLOBIN 27.6 pg (28.0-32.0); MEAN CORPUSCULAR HGB CONC 32.6 g/dL (32.0-36.0); MEAN CORPUSCULAR VOLUME 84.7 fL (83.0-99.0); MEAN PLATELET VOLUME 8.8 fL (9.4-12.4); MONOCYTES ABSOLUTE AUTO 0.71 K/uL (0.00-0.80); MONOCYTES PERCENT AUTO 8.2 % (0.0-8.0); NEUTROPHILS ABSOLUTE AUTO 6.06 K/uL (1.80-7.70); PLATELET COUNT,PLT 210 K/uL (150-400); RED BLOOD CELL COUNT 5.15 M/uL (4.52-5.90); WHITE BLOOD CELL COUNT,WBC 8.67 K/uL (3.9-11.3)
[2024-12-22 04:57] LABS: A/G RATIO 1.3 (0.9-1.6); ALBUMIN 3.9 g/dL (3.4-5.0); BILIRUBIN TOTAL 0.4 mg/dL (0.2-1.0); CALCIUM 9.1 mg/dL (8.5-10.1); EST CRCL DRUG DOSING (CG) 101.61 mL/min; POTASSIUM,K 4.7 mmol/L (3.5-5.1); PROTEIN TOTAL,TP 6.9 g/dL (6.4-8.2)
[2024-12-22] MEDS: LORazepam 2 MG/ML SDV IVPUSH ONE (06:28)
[2024-12-22] MEDS: Lidocaine 2% Viscous Solution 15 ML UD PO ONE (06:28)
[2024-12-22 07:25] LABS: GLUCOSE,URINE 250 mg/dL (NEGATIVE); KETONES,URINE TRACE mg/dL (NEGATIVE); LEUKOCYTE ESTERASE,URINE NEGATIVE (NEGATIVE); NITRITE,URINE NEGATIVE (NEGATIVE); OCCULT BLOOD,URINE LARGE (NEGATIVE); PH,URINE 6.5 (5.0-8.0); PROTEIN,URINE >=300 mg/dL (NEGATIVE)
[2024-12-22 07:30] LABS: BILIRUBIN,URINE MODERATE (NEGATIVE)
[2024-12-22 07:32] LABS: APPEARANCE,URINE BLOODY; COLOR,URINE RED
[2024-12-22 07:33] LABS: BACTERIA,URINE FEW (NEGATIVE); EPITHELIAL CELLS,URINE NOT SEEN (NONE-FEW); RBC,URINE TOO NUMEROUS TO CT (0-2/HPF)
[2024-12-22] MEDS ORDERED: Ondansetron 4 MG Tab.DIS PO PRN (11:31)
[2024-12-22] MEDS ORDERED: Sodium Chloride 0.9% 2.5 ML Syringe FLUSH PRN (11:31)
[2024-12-22] MEDS ORDERED: Sodium Chloride 0.9% 10 ML Syringe FLUSH PRN (11:31)
[2024-12-22] MEDS: cefTRIAXone 2 GM in Water For Injection, Sterile 20 ML IVPUSH SCH (12:43)
[2024-12-22] MEDS ORDERED: Glucagon,Human Recombinant 1 MG Vial IM PRN (12:59)
[2024-12-22] MEDS ORDERED: 50% Dextrose in Water 50 ML Syringe IVPUSH PRN (12:59)
[2024-12-22] MEDS: Iopamidol 755 MG/ML 500 ML Multipack Bottle IVPUSH ONE (15:22)
[2024-12-22] MEDS: Insulin Aspart 100 Units/ML 3 ML Pen SUBCUT SCH (16:51)
[2024-12-22] MEDS: oxyCODONE 5 MG Tab PO PRN (16:59)
[2024-12-22] MEDS: Desvenlafaxine Succinate 25 MG TAB.ER PO SCH (18:36)
[2024-12-22] MEDS: Finasteride 5 MG Tab PO SCH (18:36)
[2024-12-22] MEDS: Tamsulosin 0.4 MG Cap.ER PO SCH (18:36)
[2024-12-22] MEDS: Sennosides/Docusate Sodium 50-8.6 MG Tab PO SCH (20:40)
[2024-12-22] MEDS: Psyllium Husk Powder Sugar Free 5.85 GM Packet PO SCH (20:41)
[2024-12-23 06:22] LABS: BASOPHILS ABSOLUTE AUTO 0.06 K/uL (0.00-0.20); BASOPHILS PERCENT AUTO 0.8 % (0.0-1.0); EOSINOPHILS ABSOLUTE AUTO 0.18 K/uL (0.00-0.45); EOSINOPHILS PERCENT AUTO 2.3 % (0.0-6.0); HEMATOCRIT 42.4 % (42.0-52.0); HEMOGLOBIN 13.8 g/dL (14.0-18.0); IMMATURE GRAN ABSOLUTE AUTO 0.02 K/uL (0.00-0.05); IMMATURE GRAN PERCENT AUTO 0.3 % (0.0-0.4); LYMPHOCYTES ABSOLUTE AUTO 1.64 K/uL (1.00-4.80); LYMPHOCYTES PERCENT AUTO 20.7 % (24.0-44.0); MEAN CORPUSCULAR HEMOGLOBIN 27.7 pg (28.0-32.0); MEAN CORPUSCULAR HGB CONC 32.5 g/dL (32.0-36.0); MONOCYTES ABSOLUTE AUTO 0.73 K/uL (0.00-0.80); MONOCYTES PERCENT AUTO 9.2 % (0.0-8.0); NEUTROPHILS ABSOLUTE AUTO 5.28 K/uL (1.80-7.70); NEUTROPHILS PERCENT AUTO 66.7 % (41.0-71.0); PLATELET COUNT,PLT 203 K/uL (150-400); RED BLOOD CELL COUNT 4.99 M/uL (4.52-5.90); WHITE BLOOD CELL COUNT,WBC 7.91 K/uL (3.9-11.3)
[2024-12-23 06:50] LABS: CALCIUM 8.7 mg/dL (8.5-10.1); EST CRCL DRUG DOSING (CG) 101.61 mL/min; POTASSIUM,K 4.2 mmol/L (3.5-5.1)
[2024-12-23] MEDS: amLODIPine 5 MG Tab PO SCH (06:52)
[2024-12-23] MEDS: Insulin Glargine,Human Rec. Analog 100 Units/ML 3 ML Pen SUBCUT SCH (08:41)
[2024-12-23] MEDS: PSYLLIUM HUSK 0.52 GM PO SCH (08:43)
[2024-12-23] MEDS ORDERED: Sennosides/Docusate Sodium 50-8.6 MG Tab PO SCH (09:00)
[2024-12-23] MEDS ORDERED: Bisacodyl 10 MG Supp RECTAL PRN (09:20)
[2024-12-23] MEDS: Acetaminophen 325 MG Tab PO PRN (12:14)
[2024-12-24 06:19] LABS: BASOPHILS ABSOLUTE AUTO 0.07 K/uL (0.00-0.20); EOSINOPHILS ABSOLUTE AUTO 0.24 K/uL (0.00-0.45); EOSINOPHILS PERCENT AUTO 3.3 % (0.0-6.0); HEMATOCRIT 42.9 % (42.0-52.0); HEMOGLOBIN 13.8 g/dL (14.0-18.0); IMMATURE GRAN ABSOLUTE AUTO 0.02 K/uL (0.00-0.05); IMMATURE GRAN PERCENT AUTO 0.3 % (0.0-0.4); LYMPHOCYTES ABSOLUTE AUTO 1.61 K/uL (1.00-4.80); LYMPHOCYTES PERCENT AUTO 22.2 % (24.0-44.0); MEAN CORPUSCULAR HEMOGLOBIN 27.4 pg (28.0-32.0); MEAN CORPUSCULAR HGB CONC 32.2 g/dL (32.0-36.0); MEAN CORPUSCULAR VOLUME 85.1 fL (83.0-99.0); MEAN PLATELET VOLUME 8.8 fL (9.4-12.4); MONOCYTES ABSOLUTE AUTO 0.68 K/uL (0.00-0.80); MONOCYTES PERCENT AUTO 9.4 % (0.0-8.0); NEUTROPHILS ABSOLUTE AUTO 4.64 K/uL (1.80-7.70); NEUTROPHILS PERCENT AUTO 63.8 % (41.0-71.0); PLATELET COUNT,PLT 196 K/uL (150-400); RED BLOOD CELL COUNT 5.04 M/uL (4.52-5.90); WHITE BLOOD CELL COUNT,WBC 7.26 K/uL (3.9-11.3)
[2024-12-24 06:37] LABS: CALCIUM 8.6 mg/dL (8.5-10.1); CREATININE 0.9 mg/dL (0.8-1.3); EST CRCL DRUG DOSING (CG) 112.9 mL/min; MAGNESIUM 2.2 mg/dL (1.8-2.4); POTASSIUM,K 4.1 mmol/L (3.5-5.1)
[2024-12-24] MEDS: Bacitracin Oint 1 GM U/D Packet TOP ONE (20:32)
[2024-12-25] MEDS: Calcium Carbonate 500 MG Tab.Chew PO ONE (03:19)
== END 2024-12-25 10:36 | disposition home or self-care (01) | DRG 696 ==
LOC: MW.ED 02:56 → MW.MS 10:37 → OBSVTOIN 10:37 → MW.MS 11:52
PROVIDERS: ADMIT Family Medicine; ATTEND Family Medicine
DX: R31.0 Gross hematuria (principal); C84.00 Mycosis fungoides, unspecified site; N41.9 Inflammatory disease of prostate, unspecified; N39.0 Urinary tract infection, site not specified; Z68.39 Body mass index [BMI] 39.0-39.9, adult; H91.90 Unspecified hearing loss, unspecified ear; E78.00 Pure hypercholesterolemia, unspecified; I10 Essential (primary) hypertension; F41.9 Anxiety disorder, unspecified; F32.A Depression, unspecified; E11.9 Type 2 diabetes mellitus without complications; N40.1 Benign prostatic hyperplasia with lower urinary tract symptoms; R33.9 Retention of urine, unspecified; E66.9 Obesity, unspecified; Z86.16 Personal history of COVID-19; Z90.49 Acquired absence of other specified parts of digestive tract; Z98.890 Other specified postprocedural states; Z79.4 Long term (current) use of insulin; Z79.84 Long term (current) use of oral hypoglycemic drugs; Z85.51 Personal history of malignant neoplasm of bladder; Z79.899 Other long term (current) drug therapy; Z86.03 Personal history of neoplasm of uncertain behavior; Z79.82 Long term (current) use of aspirin
CPT/HCPCS: 36415; 51702; 71260; 71260-26; 74177; 74177-26; 80048; 80053; 81001; 82306; 82947; 83540; 83735; 85025; 87086; 99283; A9270-GY; G0103; J0696; J1815-GY; J2060; Q9967

== ENCOUNTER 2025-01-04 12:50 | Emergency (ER) | payer OTHER ==
[2025-01-04 13:35] LABS: BASOPHILS ABSOLUTE AUTO 0.08 K/uL (0.00-0.20); BASOPHILS PERCENT AUTO 0.7 % (0.0-1.0); EOSINOPHILS ABSOLUTE AUTO 0.22 K/uL (0.00-0.45); EOSINOPHILS PERCENT AUTO 1.9 % (0.0-6.0); HEMATOCRIT 43.5 % (42.0-52.0); HEMOGLOBIN 14.5 g/dL (14.0-18.0); IMMATURE GRAN ABSOLUTE AUTO 0.04 K/uL (0.00-0.05); IMMATURE GRAN PERCENT AUTO 0.3 % (0.0-0.4); LYMPHOCYTES ABSOLUTE AUTO 1.85 K/uL (1.00-4.80); LYMPHOCYTES PERCENT AUTO 15.9 % (24.0-44.0); MEAN CORPUSCULAR HEMOGLOBIN 27.8 pg (28.0-32.0); MEAN CORPUSCULAR HGB CONC 33.3 g/dL (32.0-36.0); MEAN CORPUSCULAR VOLUME 83.3 fL (83.0-99.0); MEAN PLATELET VOLUME 8.6 fL (9.4-12.4); MONOCYTES ABSOLUTE AUTO 0.74 K/uL (0.00-0.80); MONOCYTES PERCENT AUTO 6.4 % (0.0-8.0); NEUTROPHILS ABSOLUTE AUTO 8.69 K/uL (1.80-7.70); NEUTROPHILS PERCENT AUTO 74.8 % (41.0-71.0); PLATELET COUNT,PLT 223 K/uL (150-400); RED BLOOD CELL COUNT 5.22 M/uL (4.52-5.90); WHITE BLOOD CELL COUNT,WBC 11.62 K/uL (3.9-11.3)
[2025-01-04 14:05] LABS: A/G RATIO 1.3 (0.9-1.6); ALBUMIN 3.9 g/dL (3.4-5.0); BILIRUBIN TOTAL 0.5 mg/dL (0.2-1.0); CALCIUM 9.2 mg/dL (8.5-10.1); CARBON DIOXIDE,CO2 25.5 mmol/L (21.0-32.0); CREATININE 1.1 mg/dL (0.8-1.3); EST CRCL DRUG DOSING (CG) 92.37 mL/min; PROTEIN TOTAL,TP 6.9 g/dL (6.4-8.2)
[2025-01-04] MEDS: Lidocaine 2% Viscous Solution 15 ML UD PO ONE (16:13)
[2025-01-04 16:48] LABS: BILIRUBIN,URINE NEGATIVE (NEGATIVE); COLOR,URINE YELLOW; GLUCOSE,URINE NEGATIVE (NEGATIVE); KETONES,URINE NEGATIVE (NEGATIVE); LEUKOCYTE ESTERASE,URINE MODERATE (NEGATIVE); NITRITE,URINE NEGATIVE (NEGATIVE); OCCULT BLOOD,URINE LARGE (NEGATIVE); PROTEIN,URINE NEGATIVE (NEGATIVE); UROBILINOGEN,URINE 0.2 EU/dL (<2.0)
[2025-01-04 17:11] LABS: APPEARANCE,URINE HAZY
[2025-01-04 17:12] LABS: BACTERIA,URINE FEW (NEGATIVE); EPITHELIAL CELLS,URINE RARE (NONE-FEW); RBC,URINE 20-25 (0-2/HPF)
== END 2025-01-04 17:31 | disposition home or self-care (01) ==
LOC: MW.ED 12:50
DX: N28.9 Disorder of kidney and ureter, unspecified (principal); I10 Essential (primary) hypertension; E66.9 Obesity, unspecified; Z75.3 Unavailability and inaccessibility of health-care facilities; Z79.899 Other long term (current) drug therapy; Z79.84 Long term (current) use of oral hypoglycemic drugs; Z79.4 Long term (current) use of insulin; Z79.82 Long term (current) use of aspirin; Z68.39 Body mass index [BMI] 39.0-39.9, adult
CPT/HCPCS: 36415; 51702; 74176; 80053; 81001; 83690; 85025; 87086; 99284; A9270; 99283